=== PATIENT | female | born 1935 | race Caucasian/White ===

== ENCOUNTER 2016-07-30 11:37 | Day surgery (SDC) | payer OTHER ==
[~2016-07-30] VITALS: Ht 160 cm; Wt 49.9 kg
[~2016-07-30 11:37] MED LIST: CLARITIN10 M3 PO; FLONASE SENSIM9.9 ML BOTH NARES; HYDROCHLOROTHIA25 MG PO; LUMIGAN 0.50 DROP/22 BOTH EYES; MAG-TAB SR84 MG PO; PRINIVIL10 MG PO; TOPROL XL25 MG PO
[2016-07-30 12:13] VITALS: BP 159/65
[2016-07-30 12:13] LABS: HEMATOCRIT 42.9 % (36.0-46.0); MCH 31.7 PG (29.0-34.0); MCHC 32.6 G/DL (30.0-36.0); MCV 97.3 FL (83-99); MEAN PLAT.VOLUME 10.2 uM^3 (9.5-12.4); PLATELET COUNT 237 K/uL (156-360); RBC DIS.WIDTH-CV 13.2 % (11.8-14.6); RED BLOOD COUNT 4.41 M/uL (3.80-5.20); WHITE BLOOD COUNT 7.8 K/uL (4.1-10.2)
[2016-07-30 12:42] LABS: ANION GAP 8 MEQ/L (2-14); CHLORIDE 103 MEQ/L (99-109); GFR ESTIMATE (CALCULATED) > 59 mL/min/; GLUCOSE 107 mg/dL (70-99); POTASSIUM 4.3 MEQ/L (3.7-5.4); SAMPLE HEMOLYSIS CHECK 0; SAMPLE ICTERIC CHECK 0; SAMPLE LIPEMIA CHECK 0; SODIUM 139 MEQ/L (136-147); UREA NITROGEN (BUN) 23 mg/dL (9-23)
[2016-07-30 15:17] VITALS: BP 135/51
[2016-07-30 16:37] VITALS: BP 120/46
== END 2016-07-30 17:05 | disposition home or self-care (01) ==
LOC: SDC 11:37
PROVIDERS: Ophthalmology
DX: H33.41 Traction detachment of retina, right eye (principal); I10 Essential (primary) hypertension; G89.29 Other chronic pain; E83.42 Hypomagnesemia; F41.9 Anxiety disorder, unspecified
CPT/HCPCS: 80048; 85027; J0690; J3010; J3300